=== PATIENT | male | born 1985 | race Caucasian/White ===

== ENCOUNTER 2017-09-01 18:25 | Emergency (ER) | payer OTHER ==
[~2017-09-01] VITALS: Ht 185.4 cm; Wt 104.5 kg
[2017-09-01 18:48] VITALS: Ht 185.4 cm; Wt 104.5 kg
[2017-09-01 20:35] VITALS: BP 152/95
== END 2017-09-01 20:07 | disposition home or self-care (01) ==
LOC: ED 18:25
DX: L72.3 Sebaceous cyst (principal)

== ENCOUNTER 2020-05-05 13:05 | Emergency (ER) | payer OTHER ==
[~2020-05-05] VITALS: Ht 182.9 cm; Wt 111.1 kg
[2020-05-05 13:06] VITALS: Ht 182.9 cm; Wt 111.1 kg
[2020-05-05 14:23] LABS: CALCIUM 8.9 mg/dL (8.5-10.1); CARBON DIOXIDE 28.4 mmol/L (21-32); CHLORIDE SERUM 100 mmol/L (98-107); CREATININE SERUM 1.1 mg/dL (0.7-1.3); GFR1 > 60 mL/min; GLUCOSE SERUM 100 mg/dL (74-106); POTASSIUM SERUM 3.7 mmol/L (3.5-5.1); SODIUM SERUM 138 mmol/L (136-145)
[2020-05-05 15:00] LABS: RED CELL DISTRIBUTION WIDTH 12.5 % (12.1-16.2)
[2020-05-05 15:12] LABS: PLATELET COUNT 127 x10^3mcL (152-348)
[2020-05-05 15:33] VITALS: BP 144/101
[2020-05-05 16:25] LABS: BAND NEUTROPHIL 1 % (0-10); MONOCYTE 12 % (0-7); SEGMENTED NEUTROPHILS 64 % (37-75)
[2020-05-05 16:26] LABS: rbc morphology (normal/abnorm) NORMAL (NORMAL)
== END 2020-05-05 15:33 | disposition home or self-care (01) ==
LOC: ED 13:05
PROVIDERS: Specialist
DX: R50.9 Fever, unspecified (principal); M79.10 Myalgia, unspecified site; Z20.828 Contact with and (suspected) exposure to other viral communicable diseases